=== PATIENT | male | born 1960 | race Caucasian/White ===

== ENCOUNTER 2017-03-21 16:47 | Emergency (ER) | payer OTHER ==
[2017-03-21 17:00] VITALS: RESP 18; TEMP 98.2
[2017-03-21] MEDS ORDERED: ACETAMINOPHEN 500 MG TAB PO ONE (17:00)
[2017-03-21] MEDS ORDERED: IBUPROFEN 600 MG TAB PO ONE (17:00)
[2017-03-21] MEDS ORDERED: TDAP ADULT 0.5 ML INJ (BOOSTRIX) IM ONE (17:39)
[2017-03-21] MEDS ORDERED: CEPHALEXIN 500 MG CAP PO ONE (17:43)
--- NOTE | 2017-03-21 17:47 | EDPHY ---
H & P Stated Complaint: L 5 th finger injury-mechanical fall from ladder. - Personal History Current Tetanus/Diphtheria Vaccine: Unsure Current Tetanus Diphtheria and Acellular Pertussis (TDAP): Unsure - Medical/Surgical History Hx Asthma: No Hx Chronic Respiratory Disease: No Hx Diabetes: No Hx Cardiac Disease: No Hx Renal Disease: No Hx Cirrhosis: No Hx Alcoholism: No Hx HIV/AIDS: No Hx Splenectomy or Spleen Trauma: No Other PMH: HTN, achilles tendon R. - Social History Smoking Status: Never smoked HPI/ROS: Chief complaint: Left 5th finger injury History of present illness: This is a 56-year-old male who presents to the emergency department for left 5th finger injury. Patient fell off a ladder and struck his finger against it. He was wearing gloves. He felt immediate pain. When he took off the glove he knows his finger was deformed he noted a small cut. He is not currently move it. He denies abnormal coolness or paresthesias in the finger. He needs a new tetanus shot. He he denies other injuries. ( Tera Benavides) - Physical Exam Exam: General: Alert, nontoxic Skin: 0.5 cm vertically oriented laceration to the flexor surface of the left 5th finger Musculoskeletal: Obvious deformity to the PIP joint left 5th finger. Vascular: Capillary refill brisk in the left 5th finger Neurologic: Sensation intact in left 5th finger. (Tera Benavides) Constitutional: Initial Vital Signs Temperature (C) 36.8 C 03/21/17 16:55 Heart Rate 68 03/21/17 16:55 Respiratory Rate 18 03/21/17 16:55 Blood Pressure 166/110 H 03/21/17 16:55 O2 Sat (%) 97 03/21/17 16:55 O2 Delivery Mode Room Air Allergies/Adverse Reactions: No Known Allergies Allergy (Verified 03/21/17 17:00) Home Medications: Medication Instructions Recorded Cephalexin [Keflex (*)] 500 mg PO QID 5 Days cap 03/21/17 Lisinopril 03/21/17 Medical Decision Making - Diagnostics Imaging: I viewed and interpreted images myself - Diagnostics Imaging Results: Imaging Impressions Finger X-Ray 03/21/17 17:01 Impression: Dorsally dislocated left fifth proximal interphalangeal joint. Finger X-Ray 03/21/17 17:43 Impression: No fracture or dislocation of the left fifth finger. Procedures: Procedure: Digital block Indication: Pain, dislocation reduction Procedure: The area was prepped with alcohol. 1 cc of 0.5 bupivacaine without epinephrine was instilled on the medial and lateral aspect of the left 5th finger. Trace blood loss. Patient tolerated the procedure well. No complications noted. Procedure: Dislocation reduction. The dislocation of the left 5th finger was reduced using traction technique without complications. Post reduction the patient's neurovascular exam is normal. Post reduction x-ray demonstrates reduction of the joint to the anatomic position. The procedure was performed by myself. Procedure: Laceration repair. Verbal consent was obtained from the patient. The 0.5 cm laceration on the left 5th finger was anesthetized in the usual fashion. The wound was irrigated , draped and explored to its base with a gloved finger. There were no deep structures involved. No tendon injury was identified. The wound was repaired with 5 0 Prolene, 1 simple interrupted suture. The wound repair was simple. The procedure was performed by myself. (Tera Benavides) ED Course/Re-evaluation: Patient seen under the supervision of my secondary supervising physician Dr. Caitie Taylor. Patient presents to the emergency department for a left 5th finger injury. The finger is neurovascularly intact. He appears to have dislocated it and this has been relocated. His wound has been cleaned and sutured. Finger has been dressed and splinted. Given concern for open dislocation patient is started on Keflex. Patient is discharged home. Referred to a hand doctor for recheck. Return precautions are given. Patient voiced understanding and agreement with plan. (Tera Benavides) The patient was evaluated and managed by the physician bricklayer's assistant. I have reviewed this chart and I agree with the findings and plan of care as documented , as indicated by my signature. I am the secondary supervising physician. ( Caitie Taylor) Differential Diagnosis: Included but not limited to fracture, dislocation, sprain or strain (Tera Benavides) - Data Points Medications Given: Discontinued Medications Acetaminophen (Tylenol) 1,000 mg PO EDNOW ONE Stop: 03/21/17 17:01 Last Admin: 03/21/17 17:05 Dose: 1,000 mg Cephalexin (Keflex 500 Mg Prepack#4) 1 btl TAKEHOME EDNOW ONE PRN Reason: Protocol Stop: 03/21/17 18:12 Last Admin: 03/21/17 18:16 Dose: 1 btl Cephalexin HCl (Keflex) 500 mg PO EDNOW ONE PRN Reason: Protocol Stop: 03/21/17 17:44 Last Admin: 03/21/17 17:54 Dose: 500 mg Diphtheria/Tetanus/Acell Pertussis (Boostrix) 0.5 ml IM .ONCE ONE Stop: 03/21/17 17:40 Last Admin: 03/21/17 17:52 Dose: 0.5 ml Ibuprofen (Motrin) 200 mg PO EDNOW ONE Stop: 03/21/17 17:01 Last Admin: 03/21/17 17:06 Dose: 200 mg Departure - Departure Disposition: Home, Routine, Self-Care Clinical Impression: Finger dislocation Condition: Good Instructions: Cephalexin (By mouth), Finger Dislocation (ED) Additional Instructions: Follow-up with a hand doctor for continued evaluation and care Your stitches need to be removed in 7 days If symptoms worsen or new symptoms develop return to the emergency room for recheck Referrals: Percy Butler MD [Primary Care Provider] - As per Instructions Kiet Grady MD [Medical Doctor] - As per Instructions Aura Benavides MD [Medical Doctor] - As per Instructions Catalina Sun MD [Medical Doctor] - As per Instructions Prescriptions: Cephalexin [Keflex (*)] 500 mg PO QID 5 Days cap
[2017-03-21] MEDS ORDERED: CEPHALEXIN 500MG PREPACK#4 BTL TAKEHOME ONE (18:11)
[2017-03-21 18:21] VITALS: BP 163/104; PULSE 64; O2SAT 96
== END 2017-03-21 18:22 | disposition home or self-care (01) ==
DX: S63.287A Dislocation of proximal interphalangeal joint of left little finger, initial encounter (principal); S61.217A Laceration without foreign body of left little finger without damage to nail, initial encounter; I10 Essential (primary) hypertension; Z23 Encounter for immunization; W11.XXXA Fall on and from ladder, initial encounter
CPT/HCPCS: L3925